=== PATIENT | male | born 1990 | race Caucasian/White ===

== ENCOUNTER 2023-05-23 13:20 | Outpatient (RCR) | payer OTHER, SELFPAY | END 2023-05-23 23:59 | disposition home or self-care (01) | LOC: RPT 13:20 | PROVIDERS: ATTENDING PHYSICIAN Physical Medicine & Rehabilitation; FAMILY PHYSICIAN General Practice | DX: S06.9X9D Unspecified intracranial injury with loss of consciousness of unspecified duration, subsequent encounter (principal); Z73.6 Limitation of activities due to disability; M62.81 Muscle weakness (generalized); G40.909 Epilepsy, unspecified, not intractable, without status epilepticus; Z87.820 Personal history of traumatic brain injury; Z91.81 History of falling | CPT/HCPCS: 97116; 97163; 97167; 97530 ==

== ENCOUNTER 2023-06-21 11:27 | Outpatient (RCR) | payer OTHER, SELFPAY | END 2023-06-21 23:59 | disposition home or self-care (01) | LOC: RST 11:27 | PROVIDERS: ATTENDING PHYSICIAN Physical Medicine & Rehabilitation; FAMILY PHYSICIAN General Practice | DX: S06.9X9D Unspecified intracranial injury with loss of consciousness of unspecified duration, subsequent encounter (principal); R41.841 Cognitive communication deficit; R41.844 Frontal lobe and executive function deficit; R41.840 Attention and concentration deficit; R56.9 Unspecified convulsions; M62.81 Muscle weakness (generalized); Z73.6 Limitation of activities due to disability; W10.9XXD Fall (on) (from) unspecified stairs and steps, subsequent encounter | CPT/HCPCS: 96125; 97110; 97116; 97129; 97130; 97530; 97535 ==

== ENCOUNTER 2023-07-20 13:07 | Outpatient (RCR) | payer OTHER, SELFPAY | END 2023-07-20 23:59 | disposition home or self-care (01) | LOC: RST 13:07 | PROVIDERS: ATTENDING PHYSICIAN Physical Medicine & Rehabilitation; FAMILY PHYSICIAN General Practice | DX: S06.9X9D Unspecified intracranial injury with loss of consciousness of unspecified duration, subsequent encounter (principal); Z73.6 Limitation of activities due to disability; M62.81 Muscle weakness (generalized); R41.841 Cognitive communication deficit; R41.844 Frontal lobe and executive function deficit; R41.840 Attention and concentration deficit | CPT/HCPCS: 97010; 97110; 97116; 97129; 97130; 97140; 97530; 97535 ==

== ENCOUNTER 2023-08-16 09:35 | Outpatient (RCR) | payer OTHER, SELFPAY | END 2023-08-16 23:59 | disposition home or self-care (01) | LOC: RST 09:35 | PROVIDERS: ATTENDING PHYSICIAN Physical Medicine & Rehabilitation; FAMILY PHYSICIAN General Practice | DX: S06.9X9D Unspecified intracranial injury with loss of consciousness of unspecified duration, subsequent encounter (principal); Z73.6 Limitation of activities due to disability; M62.81 Muscle weakness (generalized); R41.841 Cognitive communication deficit; G40.909 Epilepsy, unspecified, not intractable, without status epilepticus; R41.844 Frontal lobe and executive function deficit; R41.840 Attention and concentration deficit | CPT/HCPCS: 97010; 97014; 97110; 97112; 97116; 97129; 97130; 97140; 97530; 97535 ==

== ENCOUNTER 2023-09-14 09:20 | Outpatient (RCR) | payer OTHER, SELFPAY | END 2023-09-18 08:06 | disposition home or self-care (01) | LOC: RST 09:20 | PROVIDERS: ATTENDING PHYSICIAN Physical Medicine & Rehabilitation; FAMILY PHYSICIAN General Practice | DX: S06.9X9D Unspecified intracranial injury with loss of consciousness of unspecified duration, subsequent encounter (principal); Z73.6 Limitation of activities due to disability; M62.81 Muscle weakness (generalized); R41.841 Cognitive communication deficit; R41.844 Frontal lobe and executive function deficit; R41.840 Attention and concentration deficit | CPT/HCPCS: 97010; 97110; 97112; 97116; 97129; 97130; 97140; 97530; 97535 ==